=== PATIENT | male | born 1975 | race Caucasian/White ===

== ENCOUNTER → 2018-02-24 09:37 | Outpatient (CLI) | payer OTHER, SELFPAY ==
[2018-02-24 12:19] LABS: Absolute Lymphocyte Count 1.22 X10^3/ul (0.83-4.51); Absolute Neutrophil Count 2.4 X10^3/uL (2.0-7.7); Basophil# 0.02 X10^3/uL; Basophil% 0.5 % (0-1); Eosinophil# 0.36 X10^3/uL; Eosinophils% 8.2 % (0-5); Hematocrit 45.4 % (40-54); Lymphocyte # 1.22 X10^3/ul (4.0); Lymphocyte % 27.7 % (19-41); Mean Corpuscular Hgb 30.4 pg (27.0-32.0); Mean Corpuscular Volume 91.9 fL (80-94); Mean Platelet Vol. 11.7 fl (6.2-12.0); Monocyte# 0.39 X10^3/uL; Monocyte% 8.9 % (0-10); Neutrophil # 2.41 X10^3/uL (2.7-7.7); Neutrophil % 54.7 % (47-70); Platelet Count 203 K/mm3 (150-450); RBC Distribution Width SD 43.1 fl (35.1-43.9); Red Blood Count 4.94 M/mm3 (4.6-6.2); White Blood Count 4.4 K/mm3 (4.4-11.0)
[2018-02-24 12:33] LABS: POSITIVE COUNT NO; POSITIVE DIFFERENTIAL NO; POSITIVE MORPHOLOGY NO
[2018-02-24 12:55] LABS: ALB/GLOB Ratio 1.1 RATIO (0.9-2.4); AST(SGOT) 42 U/L (15-37); Alanine Aminotransfer ALT/SGPT 101 U/L (16-61); Alkaline Phosphatase 81 U/L (45-117); Anion Gap 7 (5-15); BUN 13 mg/dL (7-18); BUN/Creat Ratio 11.7 RATIO (10-20); Calcium,Total 8.9 mg/dL (8.5-10.1); Chloride 104 mmol/L (98-107); Cholesterol 256 mg/dL (200); Creatinine, Serum 1.11 mg/dL (0.70-1.30); EST Glomerular Filtration Rate 76 mL/min (>60); Est Glom Filt Rate - Afr Amer 92 mL/min (>60); Globulin 3.8 g/dL (2.2-4.2); Glucose 98 mg/dL (74-106); High Density Lipoprotein 30 mg/dL; Potassium 4.1 mmol/L (3.5-5.1); Protein, Total 7.8 g/dL (6.4-8.2); Sodium Level 137 mmol/L (136-145); Thyroid Stim Hormone (TSH) 1.68 uIU/mL (0.358-3.74); Triglycerides 488 mg/dL
[2018-02-25 13:09] LABS: HEPATITIS B SURFACE AG Negative (Negative); Hep B Surface Antibodies Non Reactive (.); Hep C Antibodies <0.1 s/co ratio (0.0-0.9)
== END ==
PROVIDERS: Family Provider Family Medicine; PCP Family Medicine; Visit Provider Family Medicine
DX: I10 Essential (primary) hypertension (principal); R94.5 Abnormal results of liver function studies
CPT/HCPCS: 36415; 80053; 80061; 80307; 81001; 84443; 85025; 86706; 86803; 87340

== ENCOUNTER → 2018-03-12 10:32 | Outpatient (CLI) | payer OTHER, BC, SELFPAY ==
--- NOTE | 2018-03-12 10:36 | US_ITS ---
STUDY: ABDOMINAL ULTRASOUND - RIGHT UPPER QUADRANT REASON FOR VISIT: Male, 42 years old. Elevated liver function tests. TECHNIQUE: Ultrasound evaluation of the right upper quadrant was performed with real-time and static bustillo-scale imaging. # of Images: 80 TECHNICAL QUALITY: Adequate. COMPARISON: None. FINDINGS: Liver: The liver measures 18.7 cm. There is increased echogenicity consistent with fatty infiltration. The bile ducts are within normal limits. There is hepatic color flow. The direction of portal flow is hepatopetal. There is no demonstrated mass lesion. Gallbladder: Normal distended gallbladder. The gallbladder wall measures 2.7 mm. There is a negative sonographic Dyson's sign. There is no pericholecystic fluid. There are no gallstones. Common Bile Duct (C.B.D.): The common bile duct measures 3 mm. Pancreas: Normal size of the head, body and tail of the pancreas. There is normal echogenicity of the pancreas. There is no demonstrated pancreatic mass or cyst. Right Kidney: Normal size of the right kidney. The right kidney measures 11.4 cm. Normal renal cortex. The right cortex measures 1.7 cm. There is no demonstrated renal mass or cyst. There is no right hydronephrosis. US/Liver IMPRESSION: Enlarged fatty infiltrated liver. There is no other sonographic evidence of right upper quadrant abnormality. Electronically Signed: Henrique Tucker DO at 20:24 EDT Tel [phone], Service support ,
== END ==
PROVIDERS: Family Provider Family Medicine; PCP Family Medicine; Referring Provider Family Medicine; Visit Provider Family Medicine
DX: R94.5 Abnormal results of liver function studies (principal)
CPT/HCPCS: 76705

== ENCOUNTER → 2018-05-14 08:03 | Outpatient (CLI) | payer BC, SELFPAY ==
[2018-05-14 10:42] LABS: ALB/GLOB Ratio 1.2 RATIO (0.9-2.4); AST(SGOT) 34 U/L (15-37); Alanine Aminotransfer ALT/SGPT 99 U/L (16-61); Albumin, Serum 4.2 g/dL (3.2-5.0); Alkaline Phosphatase 82 U/L (45-117); Anion Gap 9 (5-15); BUN 14 mg/dL (7-18); BUN/Creat Ratio 12.8 RATIO (10-20); Calcium,Total 9.2 mg/dL (8.5-10.1); Chloride 103 mmol/L (98-107); Cholesterol 267 mg/dL (200); Creatinine, Serum 1.09 mg/dL (0.70-1.30); EST Glomerular Filtration Rate 78 mL/min (>60); Est Glom Filt Rate - Afr Amer 94 mL/min (>60); Globulin 3.4 g/dL (2.2-4.2); Glucose 108 mg/dL (74-106); High Density Lipoprotein 26 mg/dL; Protein, Total 7.6 g/dL (6.4-8.2); Sodium Level 139 mmol/L (136-145); Triglycerides 705 mg/dL
== END ==
PROVIDERS: Family Provider Family Medicine; PCP Family Medicine; Visit Provider Family Medicine
DX: K76.0 Fatty (change of) liver, not elsewhere classified (principal); E78.1 Pure hyperglyceridemia
CPT/HCPCS: 36415; 80053; 80061

== ENCOUNTER → 2018-08-17 09:31 | Outpatient (CLI) | payer BC, SELFPAY ==
[2018-08-17 13:34] LABS: ALB/GLOB Ratio 1.2 RATIO (0.9-2.4); AST(SGOT) 43 U/L (15-37); Alanine Aminotransfer ALT/SGPT 112 U/L (16-61); Albumin, Serum 4.1 g/dL (3.2-5.0); Alkaline Phosphatase 84 U/L (45-117); Anion Gap 10 (5-15); BUN 12 mg/dL (7-18); BUN/Creat Ratio 10.7 RATIO (10-20); Calcium,Total 9.2 mg/dL (8.5-10.1); Chloride 104 mmol/L (98-107); Cholesterol 265 mg/dL (200); Creatinine, Serum 1.12 mg/dL (0.70-1.30); EST Glomerular Filtration Rate 75 mL/min (>60); Est Glom Filt Rate - Afr Amer 91 mL/min (>60); Globulin 3.5 g/dL (2.2-4.2); Glucose 87 mg/dL (74-106); High Density Lipoprotein 31 mg/dL; Potassium 4.1 mmol/L (3.5-5.1); Protein, Total 7.6 g/dL (6.4-8.2); Sodium Level 141 mmol/L (136-145); Triglycerides 533 mg/dL
== END ==
PROVIDERS: Family Provider Family Medicine; PCP Family Medicine; Referring Provider Family Medicine; Visit Provider Family Medicine
DX: K76.0 Fatty (change of) liver, not elsewhere classified (principal); E78.1 Pure hyperglyceridemia
CPT/HCPCS: 36415; 80053; 80061

== ENCOUNTER → 2019-05-20 12:05 | Outpatient (CLI) | payer BC, SELFPAY ==
--- NOTE | 2019-05-20 12:10 | RAD_ITS ---
STUDY: X-RAY CHEST REASON FOR EXAM: Male, 44 years old. patient complains of dry cough x 2 months TECHNIQUE: PA and lateral views of the chest. COMPARISON: None. FINDINGS: The lungs are clear and expanded. There is no demonstrated pleural abnormality. Normal size heart. Normal mediastinum and cecilia. Normal visualized pulmonary arteries. Normal visualized aortic arch and descending thoracic aorta. Normal visualized thoracic spine. Normal visualized ribs, clavicles, and shoulders. There is no demonstrated abnormality of the visualized soft tissue structures of the upper abdomen. RAD/Chest PA and Lateral IMPRESSION: Normal x-ray examination of the chest. Electronically Signed: Sveta Dowling MD at 1:03 EST , Service support ,
== END ==
PROVIDERS: Family Provider Family Medicine; PCP Family Medicine; Referring Provider Family Medicine; Visit Provider Family Medicine
DX: J20.9 Acute bronchitis, unspecified (principal)
CPT/HCPCS: 71046

== ENCOUNTER → 2020-01-17 | Outpatient (CLI) | payer BC, SELFPAY ==
[2020-01-17 10:29] LABS: Absolute Lymphocyte Count 1.36 X10^3/uL (0.83-4.51); Absolute Neutrophil Count 3.2 X10^3/uL (2.0-7.7); Basophil# 0.03 X10^3/uL; Basophil% 0.5 % (0-1); Eosinophil# 0.48 X10^3/uL; Eosinophils% 8.5 % (0-5); Hematocrit 40.9 % (40-54); Hemoglobin 14.2 g/dL (13.0-16.5); Lymphocyte # 1.36 X10^3/ul (4.0); Mean Corp Hgb Conc 34.7 g/dL (32-36); Mean Corpuscular Hgb 31.7 pg (27.0-32.0); Mean Corpuscular Volume 91.3 fL (80-94); Mean Platelet Vol. 11.8 fl (6.2-12.0); Monocyte# 0.55 X10^3/uL; Monocyte% 9.7 % (0-10); NRBC Flagged by Analyzer 0 % (0-5); Neutrophil # 3.22 X10^3/uL (2.7-7.7); Neutrophil % 56.9 % (47-70); Platelet Count 216 K/mm3 (150-450); RBC Distribution Width CV 13.2 % (11.6-14.6); RBC Distribution Width SD 43.3 fl (35.1-43.9); Red Blood Count 4.48 M/mm3 (4.6-6.2); White Blood Count 5.7 K/mm3 (4.4-11.0)
[2020-01-17 11:23] LABS: ALB/GLOB Ratio 1.4 RATIO (0.9-2.4); AST(SGOT) 26 U/L (15-37); Alanine Aminotransfer ALT/SGPT 54 U/L (16-61); Albumin, Serum 4.1 g/dL (3.2-5.0); Alkaline Phosphatase 59 U/L (45-117); Anion Gap 7 (5-15); BUN 18 mg/dL (7-18); BUN/Creat Ratio 15.7 RATIO (10-20); Calcium,Total 9.2 mg/dL (8.5-10.1); Chloride 110 mmol/L (98-107); Cholesterol 164 mg/dL (200); Creatinine, Serum 1.15 mg/dL (0.70-1.30); EST Glomerular Filtration Rate 73 mL/min (>60); Est Glom Filt Rate - Afr Amer 88 mL/min (>60); Globulin 2.9 g/dL (2.2-4.2); Glucose 89 mg/dL (74-106); High Density Lipoprotein 37 mg/dL; Potassium 3.9 mmol/L (3.5-5.1); Sodium Level 142 mmol/L (136-145); Triglycerides 71 mg/dL; Very Low Density Lipoprotein 14 mg/dL (5-40)
== END | disposition home or self-care (01) ==
LOC: MFPLAB 08:34
PROVIDERS: PCP Family Medicine; Referring Provider Family Medicine; Visit Provider Family Medicine
DX: E78.1 Pure hyperglyceridemia (principal); I10 Essential (primary) hypertension
CPT/HCPCS: 36415; 80053; 80061; 85025

== ENCOUNTER → 2020-11-30 13:14 | Outpatient (CLI) | payer BC, SELFPAY ==
[2020-11-14 08:07] VITALS: BMI 26.3
--- NOTE | 2020-11-30 13:15 | MRI_ITS ---
STUDY: MRI RIGHT KNEE REASON FOR EXAM: Male, 45 years old. pain medial, injury TECHNIQUE: Standardized fat and water weighted pulse sequences were obtained in all 3 orthogonal planes. COMPARISON: Right knee x-ray dated NOVEMBER 14, 2020 FINDINGS: Moderate marrow edema is present in the medial femoral condyle which can be related to an acute contusion or in absence of trauma spontaneous osteonecrosis. No fracture line is seen. Normal medial meniscus. There is diffuse, less than 50% thickness articular cartilage loss of the medial femorotibial compartment. There is mild osteoarthritic spur formation of the medial knee compartment. Normal medial collateral ligamentous complex (MCL). Normal distal semimembranosus, gracilis and semitendinosus tendons. Normal lateral meniscus. Normal hyaline cartilage of the lateral femorotibial compartment. Normal lateral femoral condyle and tibial plateau. Normal proximal tibiofibular articulation. Normal lateral collateral (fibular) ligament. Normal popliteus tendon. Normal biceps femoris tendon. Normal anterior cruciate ligament (ACL). Normal posterior cruciate ligament (PCL). Normal congruent patellofemoral articulation. There is diffuse, less than 50% thickness articular cartilage loss of the patellofemoral compartment. Mild subchondral cystic changes are present in the patellofemoral compartment. Normal medial and lateral patellar retinaculum. Normal quadriceps tendon. Normal patellar tendon. Normal Hoffa''s fat pad. There is no joint effusion. The soft tissues are unremarkable. The otherwise visualized osseous structures are unremarkable. MRI/Lower Ext Joint Only (Routine) IMPRESSION: 1. Moderate marrow edema is present in the medial femoral condyle which can be related to an acute contusion or in absence of trauma spontaneous osteonecrosis. No fracture line is seen. Electronically Signed: Abdirashid Ley MD at 16:17 EDT , Service support ,
== END ==
PROVIDERS: PCP Family Medicine; Referring Provider Orthopaedic Surgery; Visit Provider Orthopaedic Surgery
DX: M25.561 Pain in right knee (principal)
CPT/HCPCS: 73721

== ENCOUNTER 2021-02-18 08:30 | Outpatient (RCR) | payer BC, SELFPAY ==
[2020-11-14 08:07] VITALS: BMI 26.3
--- NOTE | 2020-12-11 08:04 | HP.PTEVAL_ITS ---
Patient's Visit Information SRAVANI LEWIS is a 45 year old M referred to Physical Therapy by Dr. Efren Guzman DO with a diagnosis of R knee MFL Bone Bruise. Date of Evaluation: 12/11/20 Physical Therapist: GAL Rangel - Visit Plan Frequency: 2-3x /Week Duration: 2 Months Plan: 2-3X/ week for 4-8 weeks for HEP to continue strengthening of R hip and knee as well as progression of weightbearing to gait normal gait function and strength of R knee and hip with HEP and modalities only if needed. - Subjective It started about 8 weeks ago and stepped off a mat and his knee popped. He went to a rock climbing wall and fell knocking his knees together. He was in a lot of pain and not able to move and walk a lot. He has decreased pain the last couple of days with increased mobility knowing that he is not hurting himself with walking and just has not hurt as much. He has been moving around a little weightbearing walking without the crutches and did ok. Dr. Jacobsen said that he had a bone bruise. He was told by the Dr that it would be about 6-8 more weeks. Pt is WBAT. He has been using 2 crutches since about a week after the crutches. He could not get around because of pain. He went to his PCP and then referred to Dr Jacobsen and had the MRI and now in PT. No restrictions. He has been letting pain be his guide. He works in an office. Stairs: He can do stairs if he has crutches or a banister....He leads with his L leg and descending the steps he goes crutches and down leg goes down first. He is sleeping ok. He has a 4 year old. - Pain R knee pain Pain Intensity (Out of 10): 0 Pain Intensity Range: 8 - Objective Gait: Walks with some weightbearing through R LE with 2 crutches... painful if he steps wrong and does not keep muscles tense around the knee. Pt is able to walk with 1 crutch but does experience some pain... advised pt to continue to walk with 2 crutches with WBAT. R knee AROM: 0-139 degrees. L knee AROM: 0- 133 degrees (has Rods and screws in knee). LE MMT: B hip flex 4/5, R knee ext 3+/5 and L knee ext 4/5, R knee flex 4-/5 and L knee flex 4/5, R hip abd 4-/5 and L hip abd 4/5, B hip ext 4-/5. Palpation: Some tenderness along the medial joint and tissue above the patella on the R. HEP: SLR, S/L hip abd, Prone hip ext - Goals Goal 1:: I HEP Goal Time Frame: 8-12 Weeks Goal 2:: Increase R hip and knee strength by 1/2 muscle grade (at the time of the eval: LE MMT: B hip flex 4/5, R knee ext 3+/5 and L knee ext 4/5, R knee flex 4-/5 and L knee flex 4/5, R hip abd 4-/5 and L hip abd 4/5, B hip ext 4- /5). Goal Time Frame: 8-12 Weeks Goal 3:: Be able to walk with normal gait pattern and no antalgic gait by DC Goal Time Frame: 8-12 Weeks - Rehabilitation Potential Rehabilitation Potential: Good - Anticipated Interventions Patient/Client Instruction: Educate patient on: Condition, Plan of Care For the Purpose of:: To decrease pain, To decrease swelling/inflammation, To increase ROM, To improve nutrient delivery to tissue, To improve muscle performance and motor function, To improve ability to perform ADL's, To increase tolerance to activity/condition/position, To improve performance and independence with ADL's, To decrease level of supervision to perform tasks, To improve gait and locomotor functions, To improve health of tissue, To decrease soft tissue restriction, To increase flexibility/ROM Therapeutic Exercise to Include: Strength training, Balance training, Flexibilty training, Gait and locomotor training, Passive ROM, Active ROM For the Purpose of:: To decrease pain, To decrease swelling/inflammation, To increase ROM, To improve nutrient delivery to tissue, To improve ability to perform ADL's, To increase tolerance to activity/condition/position, To improve performance and independence with ADL's, To decrease level of supervision to perform tasks, To improve gait and locomotor functions, To improve health of tissue, To decrease soft tissue restriction, To increase flexibility/ROM Functional Training to Include: Gait training For the Purpose of:: To improve gait and locomotor functions, To improve safety with gait Thank you for the opportunity to evaluate your patient. For Medicare and Medicare HMO plans, please review the plan of care and approve it. It will need to be FAXED BACK to us at [phone] for Medicare purposes. For Medicare only, by signing this I certify the plan of care. Please let me know if there are questions or concerns regarding this plan of care. Physician Signature: Date:
--- NOTE | 2021-02-18 08:53 | HP.PTREVAL_ITS ---
Dr. Efren Guzman, DO, It has been my pleasure to treat SRAVANI LEWIS over the last 5 visits for R knee MFL Bone Bruise. Please see the progress note below for an update on the physical therapy plan of care! Subjective: Last time was feeling good and went on with life. Bone bruise was painful medially and it hurt. Now has lateral R knee pain constantly. R knee has been giving out wiht pain and causing him to fall. Not painful medial anymore. lateral pain to 9/10 , cannot walk without crutches due to pain. Gets around with crutches and rolling chair. Never got brace and thought he was good to go. Got away form prirotizing knee over work. Worked for a week wihtout paying attention to knee and has paid for it laterally. 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 Did have an injury where he was kneeling and daughter pushed him over and tweaked knee and that is when lateral knee started hurting. has been NWB with crutches for 4-6 weeks now. Objective/Function: L knee 0-122 AROM vs 138 R knee. L knee painful at end range flexion and extension laterally(which is diferent than his bone bruise). + bounce home test extremely. Strength L knee flexiona dn ext 4 without a lot of pain but is unable to WB for walking due to extreme lateral pain making L knee buckle. Can stand with weight through L leg without too much increased pain. Overall worse than two moonths ago when he cancelled therapy as he thought he was going to do fine and pain is in a different locationa nd not improving with NWB on crutches over last 4-5 weeks. Plan Plan: Recommended patient return to doctor due to unusual lack of healing and new pain area/inability to WB. Willl hold chart in case he is sent back. Balance/Gait/Functional tests - Balance/Special Test Scores Lower Extremity Functional Score: 34 Goals Goal 1:: I HEP Goal Time Frame: 8-12 Weeks Goal Progress: Not Progressing Goal 2:: Increase R hip and knee strength by 1/2 muscle grade (at the time of the eval: LE MMT: B hip flex 4/5, R knee ext 3+/5 and L knee ext 4/5, R knee flex 4-/5 and L knee flex 4/5, R hip abd 4-/5 and L hip abd 4/5, B hip ext 4- /5). Goal Time Frame: 8-12 Weeks Goal Progress: Not Progressing Goal 3:: Be able to walk with normal gait pattern and no antalgic gait by DC Goal Time Frame: 8-12 Weeks Goal Progress: Not Progressing Anticipated Interventions Patient/Client Instruction: Educate patient on: Condition, Plan of Care For the Purpose of:: To decrease pain, To decrease swelling/inflammation, To increase ROM, To improve nutrient delivery to tissue, To improve muscle performance and motor function, To improve ability to perform ADL's, To increase tolerance to activity/condition/position, To improve performance and independence with ADL's, To decrease level of supervision to perform tasks, To improve gait and locomotor functions, To improve health of tissue, To decrease soft tissue restriction, To increase flexibility/ROM Therapeutic Exercise to Include: Strength training, Balance training, Flexibilty training, Gait and locomotor training, Passive ROM, Active ROM For the Purpose of:: To decrease pain, To decrease swelling/inflammation, To increase ROM, To improve nutrient delivery to tissue, To improve ability to perform ADL's, To increase tolerance to activity/condition/position, To improve performance and independence with ADL's, To decrease level of supervision to perform tasks, To improve gait and locomotor functions, To improve health of tis karli, To decrease soft tissue restriction, To increase flexibility/ROM Functional Training to Include: Gait training For the Purpose of:: To improve gait and locomotor functions, To improve safety with gait Please do not hesitate to contact me at [phone] by phone or if you have questions or concerns regarding this new plan of care! Sincerely, Jevon Valles, DPT, OCS, CSCS
--- NOTE | 2021-04-24 12:30 | HP.PTDCNRP_ITS ---
SRAVANI LEWIS was seen in my office for initial evaluation on 12/11/20. The following Plan of Care was established for this patient: Initial Frequency: 2-3x /Week Initial Duration: 2 Months Patient/Client Instruction: Educate patient on: Condition, Plan of Care For the Purpose of:: To decrease pain, To decrease swelling/inflammation, To increase ROM, To improve nutrient delivery to tissue, To improve muscle performance and motor function, To improve ability to perform ADL's, To increase tolerance to activity/condition/position, To improve performance and independence with ADL's, To decrease level of supervision to perform tasks, To improve gait and locomotor functions, To improve health of tissue, To decrease soft tissue restriction, To increase flexibility/ROM Therapeutic Exercise to Include: Strength training, Balance training, Flexibilty training, Gait and locomotor training, Passive ROM, Active ROM For the Purpose of:: To decrease pain, To decrease swelling/inflammation, To increase ROM, To improve nutrient delivery to tissue, To improve ability to perform ADL's, To increase tolerance to activity/condition/position, To improve performance and independence with ADL's, To decrease level of supervision to per form tasks, To improve gait and locomotor functions, To improve health of tissue, To decrease soft tissue restriction, To increase flexibility/ROM Functional Training to Include: Gait training For the Purpose of:: To improve gait and locomotor functions, To improve safety with gait This patient was last seen in our office 02/18/21. Pertinent comments regarding their Physical therapy will appear below: DC PT At this point I will be discontinuing this patient from physical therapy. I would be happy to see this patient again in the future if found appropriate by the physician. Thank you! Linda Grigsby, GAL Balance/Gait/Functional tests - Balance/Special Test Scores Lower Extremity Functional Score: 34
== END 2021-02-18 19:00 | disposition home or self-care (01) ==
LOC: PT 08:30
PROVIDERS: PCP Family Medicine; Referring Provider Orthopaedic Surgery; Visit Provider Orthopaedic Surgery
DX: S80.01XD Contusion of right knee, subsequent encounter (principal); X58.XXXD Exposure to other specified factors, subsequent encounter
CPT/HCPCS: 97110; 97161; 97164

== ENCOUNTER 2021-03-04 16:30 | Outpatient (RCR) | payer BC, SELFPAY ==
--- NOTE | 2021-03-01 09:31 | HP.PTEVAL ---
Patient's Visit Information SRAVANI LEWIS is a 45 year old M referred to Physical Therapy by Dr. Efren Guzman DO with a diagnosis of RIGHT DISRAL I T BAND SYNDROME. Date of Evaluation: 03/01/21 Physical Therapist: Vito Anguiano, PT, Cert MDT, OCS - Visit Plan Frequency: 2x /Week Duration: 4 Weeks Plan: PT INTERVENTIONS STRENGHENING HIP/KNEE ,FUNCTIONAL STRENGTHENING AND PROPRIOCEPTION - Subjective This 45 y/o male presents to physical therapy with right distal knee pain. Patient has had pain in September twisted knee off mat ,then noticed pain after falling of rock climbing thought bone bruise medial knee. Then had another episode ~ 7weeks ago. Seen thought distal IT band syndrome. Patient has no pain just weakness. Patient using crutches .Aggravating factors extended activity, squatting /kneeling staining. Alleviating factors rest. No edema. Patient did have x-rays ,initially had MRI for bone bruise. Patient goal is to get stronger. SOCIAL: . VOCATION: [employer] - Objective POSTURE: WFL. GAIT: reciprocal pattern. PALAPTION: unremarkable. NEURO: denies paresthesia/tingling. AROM: 0-140 degrees supine knee flexion. MMT: quads/hams 4/5 ,hip flexion 4-/5,hip abd 4-/5. STAIRS: alternating steps. PROPRIOCEPTION: INTACT - Special Tests R Knee Mainor - Meniscus: Negative R Knee Kushal - ACL: Negative R Knee Anterior Drawer - ACL: Negative R Knee Posterior Drawer - PCL: Negative R Knee Valgus - MCL: Negative R Knee Varus - LCL: Negative R Knee Patellar Apprehension - PFS: Negative - Balance/Special Test Scores Lower Extremity Functional Score: 26 - Goals Goal 1:: I with HEP to manage knee pain Goal Time Frame: 4-6 Weeks Goal 2:: Patient to demonstrate 70% improvement with decrease knee pain Goal Time Frame: 4-6 Weeks Goal 3:: Patient to to increase strength quads/hams 5/5 and hip 4/5 to improve and gait Goal Time Frame: 4-6 Weeks Goal 4:: Patient to improve LFES by 10 points to improve function Goal Time Frame: 4-6 Weeks Goal 5:: Normalize gait community distances Goal Time Frame: 4-6 Weeks - Rehabilitation Potential Physical Therapy Diagnosis: This patient has right knee weakness due to episodes of injury thus will benefit from skilled PT Rehabilitation Potential: Good - Anticipated Interventions Patient/Client Instruction: Educate patient on: Condition, Plan of Care For the Purpose of:: To decrease pain, To increase ROM, To improve muscle performance and motor function, To improve ability to perform ADL's, To increase tolerance to activity/condition/position, To improve performance and independence with ADL's, To improve ability of physical actions for home/community/work/leisure, To increase flexibility/ROM, To improve endurance, To improve balance, To prevent re-injury Therapeutic Exercise to Include: Strength training, Endurance training, Balance training, Flexibilty training Comment: HIP/KNEE For the Purpose of:: To decrease pain, To increase ROM, To improve muscle performance and motor function, To increase tolerance to activity/condition/position, To improve performance and independence with ADL's, To improve ability of physical actions for home/community/work/leisure, To improve health of tissue, To decrease soft tissue restriction, To increase flexibility/ROM, To improve endurance, To prevent re-injury Thank you for the opportunity to evaluate your patient. For Medicare and Medicare HMO plans, please review the plan of care and approve it. It will need to be FAXED BACK to us at [phone] for Medicare purposes. For Medicare only, by signing this I certify the plan of care. Please let me know if there are questions or concerns regarding this plan of care. Physician Signature: Date:
== END 2021-03-04 19:00 | disposition home or self-care (01) ==
LOC: PT 16:30
PROVIDERS: PCP Family Medicine; Visit Provider Orthopaedic Surgery
DX: M76.31 Iliotibial band syndrome, right leg (principal)
CPT/HCPCS: 97110; 97161

== ENCOUNTER → 2021-04-05 08:20 | Outpatient (CLI) | payer BC, SELFPAY ==
[2021-04-05 10:30] LABS: Vitamin B12 451 pg/mL (211-911)
[2021-04-05 10:39] LABS: Anion Gap 5 (5-15); BUN 13 mg/dL (7-18); BUN/Creat Ratio 14.1 RATIO (10-20); Calcium,Total 9.1 mg/dL (8.5-10.1); Chloride 105 mmol/L (98-107); Cholesterol 161 mg/dL (200); Creatinine, Serum 0.92 mg/dL (0.70-1.30); EST Glomerular Filtration Rate 93 mL/min (>60); Est Glom Filt Rate - Afr Amer 113 mL/min (>60); Glucose 97 mg/dL (74-106); High Density Lipoprotein 38 mg/dL; Sodium Level 139 mmol/L (136-145); Triglycerides 93 mg/dL; Very Low Density Lipoprotein 19 mg/dL (5-40)
[2021-04-10 10:01] LABS: Vitamin B1, Thiamine 113.4 nmol/L (66.5-200.0)
== END ==
PROVIDERS: PCP Family Medicine; Referring Provider Nurse Practitioner Family; Visit Provider Nurse Practitioner Family
DX: F10.21 Alcohol dependence, in remission (principal); Z13.220 Encounter for screening for lipoid disorders; Z13.1 Encounter for screening for diabetes mellitus
CPT/HCPCS: 36415; 80048; 80061; 82607; 82746; 84425